=== PATIENT | female | born 1965 | race Two or more races ===

== ENCOUNTER 2017-07-09 12:03 | Emergency (ER) | payer MEDICAID ==
[~2017-07-09] VITALS: Ht 160 cm; Wt 61.2 kg
[~2017-07-09 12:03] MED LIST: ATEN25TA PO
[2017-07-09 12:10] VITALS: BP 136/88
[2017-07-09] MEDS ORDERED: HYDROCODONE/APAP 10/325MG 1 EA TABLET ONE (12:37)
[2017-07-09] MEDS ORDERED: ONDANSETRON 4 MG TAB.RAPDIS ONE ×2 (12:43→12:46)
--- NOTE | 2017-07-09 12:45 | NUR ---
Patient accidentally dropped the Zofran 4mg ODT on the floor.
[2017-07-09] MEDS ORDERED: ONDANSETRON 4 MG TAB.RAPDIS PO ONE (13:00)
[2017-07-09] MEDS ORDERED: HYDROCODONE/APAP 10/325MG 1 EA TABLET PO ONE (13:00)
== END 2017-07-09 12:53 | disposition home or self-care (01) ==
LOC: ER 12:05
DX: H72.92 Unspecified perforation of tympanic membrane, left ear (principal); E11.9 Type 2 diabetes mellitus without complications; I10 Essential (primary) hypertension
CPT/HCPCS: 99283; A4606; Q0162 ×2; Z7610

== ENCOUNTER 2018-11-18 03:01 | Inpatient (IN) | payer BC, MEDICAID ==
[~2018-11-18] VITALS: Ht 165.1 cm; Wt 78.0 kg
--- NOTE | 2018-11-18 03:05 | NUR ---
PT RONALD FROM HOME COMPLAINING OF CHEST PAIN X 2 RADIATING TO LEFT ARM AND NECK. PT CALLED 911 BECAUSE PT WAS UNABLE TO SLEEP. PT WAS GIVEN 324MG ASPIRIN AND 3 NITRO EN ROUTE TO ER. PT CURRENTLY IS SAYING THAT CHEST PAIN IS RELIEVED. PT PUT ON THE MONITOR AND PULSE OX. PT FAMILY AT BEDSIDE. AWAITING EVAL FROM ER
--- NOTE | 2018-11-18 03:12 | NUR ---
EMT WITH EKG AT BEDSIDE.
--- NOTE | 2018-11-18 03:16 | NUR ---
FIRST ASSIST AT BEDSIDE.
[2018-11-18 03:27] LABS: BASOPHILS % (AUTO) 0.4 % (0.0-2.0); EOSINOPHILS % (AUTO) 1.8 % (0.0-6.0); HEMATOCRIT 41 % (33-45); HEMOGLOBIN 13.5 g/dL (11.5-14.8); LYMPHOCYTES # (AUTO) 3.9 /CMM (0.8-4.8); LYMPHOCYTES % (AUTO) 40.6 % (20.0-44.0); MEAN CORPUSCULAR HGB CONC 33 g/dl (31.0-36.0); MEAN CORPUSCULAR VOLUME 90 fL (82-100); MONOCYTES # (AUTO) 0.5 /CMM (0.1-1.30); MONOCYTES % (AUTO) 5.1 % (2.0-12.0); NEUTROPHILS % (AUTO) 52.1 % (43.0-81.0); PLATELET COUNT (AUTO) 254 /CMM (150-450); WHITE BLOOD COUNT (AUTO) 9.5 K/uL (4.3-11.0)
--- NOTE | 2018-11-18 03:31 | NUR ---
XRAY AT BEDSIDE.
[2018-11-18 03:36] LABS: CALCIUM, SERUM 9.6 mg/dL (8.5-10.1); CARBON DIOXIDE 30 mmol/L (21-32); CHLORIDE 105 mmol/L (98-107); CREATININE 0.7 mg/dL (0.6-1.3); GLUCOSE 188 mg/dL (74-106); POTASSIUM 3.9 mmol/L (3.5-5.1); SODIUM SERUM 143 mmol/L (136-145); UREA NITROGEN, BLOOD 12 mg/dL (7-18)
[2018-11-18 03:42] LABS: ALANINE AMINOTRANSFERASE 27 U/L (12-78); ALBUMIN 3.8 g/dL (3.4-5.0); ALKALINE PHOSPHATASE 80 U/L (46-116); ASPARTATE AMINOTRANSFERASE 13 U/L (15-37); BILIRUBIN,DIRECT 0.1 mg/dL (0.0-0.2); BILIRUBIN,TOTAL 0.3 mg/dL (0.2-1.0); D-DIMER 0.19 mg/L(FEU (0.17-0.50); TOTAL PROTEIN, SERUM 7.7 g/dL (6.4-8.2)
--- NOTE | 2018-11-18 03:50 | NUR ---
PT SAYING THAT "THE PAIN IS COMING BACK." ER MD NOTIFIED. WILL CARRY OUT ORDERS.
[2018-11-18] MEDS ORDERED: HYDROCODONE/APAP 5/325MG 1 EACH TABLET ONE (03:52)
[2018-11-18] MEDS ORDERED: HYDROCODONE/APAP 5/325MG 1 EACH TABLET PO ONE (04:00)
--- NOTE | 2018-11-18 04:25 | NUR ---
admit to the panel - hospiltalist
[2018-11-18] MEDS ORDERED: HYDROCODONE/APAP 5/325MG 1 EACH TABLET PO PRN (04:30)
[2018-11-18] MEDS ORDERED: DEXTROSE 50%-WATER 50 ML DISP.SYRIN IV PRN (04:30)
[2018-11-18] MEDS ORDERED: ONDANSETRON HCL/PF 4 MG/2 ML VIAL IVP PRN (04:30)
[2018-11-18] MEDS ORDERED: MAG HYDROX/AL HYDROX/SIMETH 30 ML UDC PO PRN (04:30)
[2018-11-18] MEDS ORDERED: MAGNESIUM HYDROXIDE 30 ML UDC PO PRN (04:30)
[2018-11-18] MEDS ORDERED: ACETAMINOPHEN 325 MG TABLET PO PRN (04:30)
[2018-11-18] MEDS ORDERED: INSULIN REGULAR, HUMAN 100 UNIT/ML 3 ML VIAL SQ PRN (04:30)
[2018-11-18] MEDS ORDERED: Z GUARD REMEDY 2 OZ OINT TP PRN (04:30)
[2018-11-18 04:34] VITALS: BP 121/78
--- NOTE | 2018-11-18 04:34 | NUR ---
MEDICAL ECONOMICS CONSULTANTDIRECTOR CREDIT RISK NOTES Received patient from ER via [facility] accompanied by 2 ER staff and patient's daughter. Admitted to TELE 324-1 due to Chest Pain under the service of METROLOGIST Samantha Jose. Admission routine done. Patient's skin is clean, dry and intact. On tele monitor - SR 79. Patient denies any discomfort at this time. On O2 via NC @ 2LPM, saturating well 97%. No SOB/respiratory distress noted. All nursing needs attended and met. Kept bed low and locked, siderails x2 up. Daughter remained at bedside. Call light within easy reach. Will continue to monitor accordingly.
--- NOTE | 2018-11-18 05:46 | NUR ---
WOOL SPOTTER NOTES Patient expressed going home claiming she is stable. Explained to patient and daughter the risk of going home without medical clearance. CN were notified, CN explained to patient and family the risk of going home AMA. Patient signed AMA formed. Patient removed O2 inhalation and tele monitor. RN removed IV access, intact and complete. Admitting MD notified. Patient left the room ambulatory escorted by the daughter.
[2018-11-18] MEDS ORDERED: BLOOD SUGAR DIAGNOSTIC 1 EACH STRIP IN SCH (07:30)
[2018-11-18] MEDS ORDERED: ENOXAPARIN SODIUM 40 MG/0.4 ML DISP.SYRIN SQ SCH (09:00)
== END 2018-11-18 05:45 | disposition left against medical advice (07) | DRG 198 ==
LOC: ER 03:02 → TELE 04:24
PROVIDERS: ADMIT Nurse Practitioner Acute Care; ATTEND Nurse Practitioner Acute Care
DX: I24.9 Acute ischemic heart disease, unspecified (principal); E11.9 Type 2 diabetes mellitus without complications; I10 Essential (primary) hypertension; Z72.0 Tobacco use
CPT/HCPCS: 36415; 71045-TC; 80048-TC; 80076-TC; 84484-TC; 85025-TC; 85378-TC; 85730-TC; 87081-TC; G0378; J1815

== ENCOUNTER 2022-01-19 12:40 | Emergency (ER) | payer BC, MEDICAID ==
[~2022-01-19] VITALS: Ht 152.4 cm; Wt 79.4 kg
--- NOTE | 2022-01-19 12:52 | NUR ---
CAME IN FOR DIZZINESS. TO ER BED 9, HOOKED TO MONITOR, CHANGED TO HOSP GOWN, WARM BLANKET PROVIDED, PATIENT AAO x 4. BREATHING EVEN AND UNLABORED AWAITING MD CHACON
--- NOTE | 2022-01-19 13:00 | NUR ---
DR JACINTO AT BEDSIDE
[2022-01-19] MEDS ORDERED: ONDANSETRON 4 MG TAB.RAPDIS PO ONE (13:30)
[2022-01-19] MEDS ORDERED: MECLIZINE HCL 12.5 MG TABLET PO ONE ×2 (13:30→16:30)
--- NOTE | 2022-01-19 13:35 | NUR ---
WHEELED OUT VIA RNEY FOR CT SCAN
[2022-01-19 13:51] LABS: BASOPHILS % (AUTO) 0.2 % (0.0-2.0); EOSINOPHILS % (AUTO) 1.4 % (0.0-6.0); HEMATOCRIT 40 % (33-45); HEMOGLOBIN 13.2 g/dL (11.5-14.8); LYMPHOCYTES # (AUTO) 2.9 K/uL (0.8-4.8); LYMPHOCYTES % (AUTO) 33.8 % (20.0-44.0); MEAN CORPUSCULAR HGB CONC 33 g/dl (31.0-36.0); MEAN CORPUSCULAR VOLUME 90 fL (82-100); MONOCYTES # (AUTO) 0.5 K/uL (0.1-1.30); MONOCYTES % (AUTO) 5.9 % (2.0-12.0); NEUTROPHILS % (AUTO) 58.7 % (43.0-81.0); PLATELET COUNT (AUTO) 221 K/uL (150-450); RED BLOOD CELL COUNT(AUTO) 4.47 MIL/uL (4.0-5.2); WHITE BLOOD COUNT (AUTO) 8.5 K/uL (4.3-11.0)
[2022-01-19 14:47] LABS: CALCIUM, SERUM 9.4 mg/dL (8.5-10.1); CARBON DIOXIDE 29 mmol/L (21-32); CHLORIDE 105 mmol/L (98-107); CREATININE 0.6 mg/dL (0.6-1.3); GLUCOSE 113 mg/dL (74-106); SODIUM SERUM 143 mmol/L (136-145); UREA NITROGEN, BLOOD 9 mg/dL (7-18)
[2022-01-19 14:53] LABS: ALANINE AMINOTRANSFERASE 31 U/L (12-78); ALBUMIN 3.9 g/dL (3.4-5.0); ALKALINE PHOSPHATASE 94 U/L (46-116); ASPARTATE AMINOTRANSFERASE 19 U/L (15-37); BILIRUBIN,DIRECT 0.1 mg/dL (0.0-0.2); BILIRUBIN,TOTAL 0.6 mg/dL (0.2-1.0); TOTAL PROTEIN, SERUM 7.3 g/dL (6.4-8.2)
--- NOTE | 2022-01-19 16:01 | NUR ---
DR MACE AND CONFLICT RESOLUTION PROFESSIONAL KESTENIAN AT BEDSIDE EXPLAINING RESULTS TO PATIENT
[2022-01-19] MEDS ORDERED: MECLIZINE HCL 25 MG TABLET ONE (16:23)
[2022-01-19] MEDS ORDERED: KETOROLAC TROMETHAMINE INJ 30 MG/ML VIAL ONE (16:23)
[2022-01-19] MEDS ORDERED: MECL-159 PO (16:26)
[2022-01-19] MEDS ORDERED: IV NS 0.9% 500 ML BAG IV ONE (16:30)
[2022-01-19] MEDS ORDERED: KETOROLAC TROMETHAMINE INJ 30 MG/ML VIAL IV ONE ×2 (16:30)
[2022-01-19 16:40] VITALS: BP 133/72
--- NOTE | 2022-01-19 16:40 | NUR ---
IV removed. Catheter intact and site benign. Pressure and 4x4 applied to site. No bleeding noted.Patient discharged to home in stable condition. Written and verbal after care instructions given. Patient verbalizes understanding of instruction.
== END 2022-01-19 16:41 | disposition home or self-care (01) ==
LOC: ER 12:47
DX: H81.10 Benign paroxysmal vertigo, unspecified ear (principal); I10 Essential (primary) hypertension; E11.9 Type 2 diabetes mellitus without complications; F17.200 Nicotine dependence, unspecified, uncomplicated; Z79.899 Other long term (current) drug therapy
CPT/HCPCS: 36415; 70450; 71045; 80048; 80076; 84484; 85025; 85730; 93005; 96374; 99285; J1885; J8597; J7040

== ENCOUNTER 2022-11-18 23:55 | Emergency (ER) | payer MEDICAID, OTHER ==
[~2022-11-18] VITALS: Ht 152.4 cm; Wt 79.4 kg
[~2022-11-18 23:55] MED LIST changes: +MECL-159 PO
[2022-11-18 23:57] VITALS: BP 140/83
--- NOTE | 2022-11-18 23:57 | NUR ---
from home, c/o R hand pain x 2 days, no trauma, no fall
--- NOTE | 2022-11-19 00:20 | NUR ---
SENIOR EDITOR AT PT'S BEDSIDE
[2022-11-19] MEDS ORDERED: KETOROLAC TROMETHAMINE INJ 30 MG/ML VIAL IM ONE (00:30)
[2022-11-19] MEDS ORDERED: KETOROLAC TROMETHAMINE INJ 30 MG/ML VIAL ONE (00:39)
[2022-11-19] MEDS ORDERED: IBUPROFEN 200 MG TABLET ONE (01:57)
[2022-11-19] MEDS ORDERED: IBUPROFEN 400 MG TABLET PO ONE (02:00)
--- NOTE | 2022-11-19 02:11 | NUR ---
Patient discharged to home in stable condition. Written and verbal after care instructions given. Patient verbalizes understanding of instruction.
== END 2022-11-19 02:11 | disposition home or self-care (01) ==
LOC: ER 11-19 00:02
DX: M25.531 Pain in right wrist (principal); I10 Essential (primary) hypertension; E11.9 Type 2 diabetes mellitus without complications; F17.200 Nicotine dependence, unspecified, uncomplicated; Z79.899 Other long term (current) drug therapy
CPT/HCPCS: 73060-TC; 73090-TC; J1885

== ENCOUNTER → 2022-11-20 | Emergency (ER) | payer OTHER ==
[~2022-11-20] VITALS: Ht 152.4 cm; Wt 77.1 kg
[2022-11-20 07:00] VITALS: BP 149/80
== END | disposition left against medical advice (07) ==
LOC: ER 06:54
DX: Z53.21 Procedure and treatment not carried out due to patient leaving prior to being seen by health care provider (principal)

== ENCOUNTER 2023-09-16 15:54 | Emergency (ER) | payer OTHER ==
[~2023-09-16] VITALS: Ht 157.5 cm; Wt 74.8 kg
[2023-09-16] MEDS ORDERED: TYL2T PO (17:15)
[2023-09-16] MEDS ORDERED: IBUP-1953 PO (17:15)
[2023-09-16 17:54] VITALS: BP 126/87; TEMP 209.1; O2SAT 99
== END 2023-09-16 17:55 | disposition home or self-care (01) ==
LOC: ER 16:00
DX: M25.532 Pain in left wrist (principal); I10 Essential (primary) hypertension; E78.5 Hyperlipidemia, unspecified
CPT/HCPCS: 73080-TC; 73090-TC; 73110